=== PATIENT | female | born 1980 | race Asian ===

== ENCOUNTER 2017-06-11 10:43 | Outpatient (CLI) | payer OTHER ==
[~2017-06-11 10:43] MED LIST: CLONIDINE0.1 MG PO; CLONIDINE0.3 MG PO; DILTCAP11 PO; DILTIAZEM240 M1 PO; FERR325T5 PO; FEXOFENADINE H180 MG PO; METOPROLOL25 M1 OR; REMERON SLTB45 MG OR; SERT50TA PO; SPRINTEC 2828 DAY OR
[2017-06-11 11:15] LABS: PLATELET COUNT 196 K/uL (152-353)
[2017-06-11 11:41] LABS: POTASSIUM 4.3 mmol/L (3.6-5.2); SODIUM 138 mmol/L (136-145)
== END 2017-06-11 19:31 | disposition home or self-care (01) ==
LOC: LABW 10:43
DX: D50.8 Other iron deficiency anemias (principal); R94.6 Abnormal results of thyroid function studies
CPT/HCPCS: 36415; 80053; 84443; 85027

== ENCOUNTER 2017-06-20 05:18 | Emergency (ER) | payer OTHER ==
[~2017-06-20] VITALS: Ht 162.6 cm; Wt 54.9 kg
[2017-06-20 05:33] VITALS: BP 163/103; TEMP 97.8
[2017-06-20] MEDS ORDERED: RISP1TAB PO (05:43)
[2017-06-20] MEDS ORDERED: AMLO2.5T PO (05:46)
[2017-06-20] MEDS ORDERED: REMERON30 MG PO (05:48)
== END 2017-06-20 06:12 | disposition home or self-care (01) ==
LOC: ED 05:18
DX: I10 Essential (primary) hypertension (principal)
CPT/HCPCS: 99281

== ENCOUNTER 2018-12-17 13:09 | Outpatient (CLI) | payer OTHER ==
[~2018-12-17 13:09] MED LIST changes: +AMLO2.5T PO; +REMERON30 MG PO; +RISP1TAB PO
[2018-12-17 13:44] LABS: PLATELET COUNT 211 K/uL (152-353)
[2018-12-17 14:00] LABS: POTASSIUM 3.9 mmol/L (3.6-5.2)
== END 2018-12-17 19:45 | disposition home or self-care (01) ==
LOC: LABW 13:09
PROVIDERS: Internal Medicine
DX: I10 Essential (primary) hypertension (principal)
CPT/HCPCS: 36415; 80053; 80061; 81000; 84443; 85027

== ENCOUNTER 2022-04-15 11:23 | Emergency (ER) | payer OTHER ==
[~2022-04-15] VITALS: Ht 162.6 cm; Wt 43.1 kg
[2022-04-15 11:27] VITALS: BP 144/80; TEMP 98
== END 2022-04-15 12:40 | disposition home or self-care (01) ==
LOC: ED 11:23
DX: K04.7 Periapical abscess without sinus (principal); R22.0 Localized swelling, mass and lump, head; K02.9 Dental caries, unspecified
CPT/HCPCS: 96372; 99283; J0696; J1885

== ENCOUNTER 2022-11-11 18:19 | Emergency (ER) | payer OTHER ==
[~2022-11-11] VITALS: Ht 162.6 cm; Wt 49.9 kg
[2022-11-11 18:22] VITALS: BP 169/77; TEMP 98.8
[2022-11-11 19:28] LABS: POTASSIUM 4.1 mmol/L (3.6-5.2)
[2022-11-11 19:51] LABS: PLATELET COUNT 197 K/uL (152-353)
== END 2022-11-11 20:15 | disposition home or self-care (01) ==
LOC: ED 18:19
PROVIDERS: Emergency Medicine
DX: K64.8 Other hemorrhoids (principal); I10 Essential (primary) hypertension; D64.89 Other specified anemias; F17.290 Nicotine dependence, other tobacco product, uncomplicated
CPT/HCPCS: 36415; 80053; 85027; 96372; 99284; J1885